=== PATIENT | female | born 1990 | race Caucasian/White ===

== ENCOUNTER 2017-07-10 10:40 | Emergency (ER) | payer OTHER ==
[~2017-07-10 10:40] MED LIST: ALBUTEROL 0.5ML INH; BACTRIM DS TABL1 TA1 PO; BENZONATATE PO; ERYTHROMYCIN B500 MG PO; FLEXERIL10 MG PO; NO MEDICATIONS; OMNICEF PO; PHENERGAN25 M1 PO; PREDNISONE PO; TAMIFLU75 M1 PO; VOLTAREN50 MG PO; ZITHROMAX1 G/PKT PO
[2017-07-10] MEDS ORDERED: AMOXICILLIN (11:36)
== END 2017-07-10 11:36 | disposition home or self-care (01) ==
LOC: SED 10:40
DX: J02.9 Acute pharyngitis, unspecified (principal); J45.909 Unspecified asthma, uncomplicated
CPT/HCPCS: 87651; 99283